=== PATIENT | male | born 1990 | race Caucasian/White ===

== ENCOUNTER 2019-07-14 10:18 | Emergency (ER) | payer SELFPAY ==
[2019-07-14 11:04] LABS: Absolute Lymphocytes (CBC) 0.9 K/uL (0.7-4.9); Basophils % 0.5 % (0-1.3); Lymphocytes % 12.3 % (15.3-44.8); MPV 8.4 fL (7.6-11.3); RBC Red Blood Cell Count 5.99 M/uL (4.33-5.43)
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
[2019-07-14] MEDS ORDERED: NA CHLORIDE 0.9% 1,000 ML ONE (11:46)
--- NOTE | 2019-07-14 11:50 | RAD REPORT ---
EXAM DESCRIPTION: RAD - Wrist Left 2 View - 07/14/2019 11:42 am CLINICAL HISTORY: Left wrist pain status post injury FINDINGS: No fracture or dislocation is seen. If the patient continues to have symptoms to suggest an occult fracture then a followup plain film se leslie in 7 days would be recommended
--- NOTE | 2019-07-14 11:52 | RAD REPORT ---
EXAM DESCRIPTION: RAD - Wrist Right 2 View - 07/14/2019 11:42 am CLINICAL HISTORY: Right wrist pain status post injury FINDINGS: No fracture or dislocation is seen. If the patient continues to have symptoms to suggest a n occult fracture then a followup plain film series in 7 days would be recommended.
--- NOTE | 2019-07-14 12:01 | RAD REPORT ---
EXAM DESCRIPTION: RAD - Foot Right 3 View - 07/14/2019 10:51 am CLINICAL HISTORY: Right foot pain status post injury FINDINGS: Comminuted intra-articular fracture involves the base of the first metatarsal. Mild displa cement of fracture fragments. On the lateral view there is possible dislocation of the first metatarsal. This may simply be seconda ry to the comminuted fracture at the first metatarsal base giving the appearance of a dislocation. Further evaluation with CT could be obtained if clinically indicated Chip fracture involves the base of the fifth metatarsal
[2019-07-14 14:17] VITALS: TEMP 98.4
[2019-07-14 14:20] VITALS: O2SAT 99
[2019-07-14 14:21] VITALS: BP 138/86
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
== END 2019-07-14 13:49 | disposition home or self-care (01) ==
LOC: ER 10:18
DX: S92.311A Displaced fracture of first metatarsal bone, right foot, initial encounter for closed fracture (principal); S92.354A Nondisplaced fracture of fifth metatarsal bone, right foot, initial encounter for closed fracture; V28.4XXA Motorcycle driver injured in noncollision transport accident in traffic accident, initial encounter; Z88.1 Allergy status to other antibiotic agents
CPT/HCPCS: 36415; 70450; 71260; 72125; 74177; 80048; 82947; 85025; 96360; 99285; J7030; Q9967